=== PATIENT | male | born 1965 | race Caucasian/White ===

== ENCOUNTER 2022-04-14 11:02 | Outpatient (CLI) | payer MEDICAID, SELFPAY ==
[2022-04-14 21:46] LABS: Albumin* 2.9 g/dL (3.3-5.0); Chloride* 96 mmol/L (96-114)
[2022-04-14 21:47] LABS: Potassium* 3.2 mmol/L (3.6-5.1); Sodium* 135 mmol/L (135-149)
[2022-04-14 21:49] LABS: Aspartate Amino Transferase* 180 U/L (12-35); Carbon Dioxide* 22 mmol/L (20-32); Creatinine* 1.5 mg/dL (0.5-1.5); Estimated Glomerular Filt Rate 54 ml/min
[2022-04-14 21:50] LABS: Alanine Aminotransferase* 113 U/L (4-50); Alkaline Phosphatase* 488 U/L (40-150); Blood Urea Nitrogen* 20 mg/dL (7-30); Calcium* 8.8 mg/dL (8.4-10.6); Glucose* 132 mg/dL (60-115); Total Protein* 6.4 g/dL (6.0-8.3)
[2022-04-14 22:31] LABS: Bilirubin Total* 20.2 mg/dL (0.1-1.5)
== END 2022-04-14 11:03 | disposition home or self-care (01) ==
LOC: LKVREF 11:04
PROVIDERS: PCP Family Medicine; Visit Provider Family Medicine
DX: R53.83 Other fatigue (principal); I10 Essential (primary) hypertension; R06.02 Shortness of breath; R17 Unspecified jaundice; R79.89 Other specified abnormal findings of blood chemistry
CPT/HCPCS: 80053